=== PATIENT | female | born 1940 | race African-American/Black ===

== ENCOUNTER 2020-01-03 15:13 | Emergency (ER) | payer OTHER ==
[~2020-01-03] VITALS: Ht 165.1 cm; Wt 90.0 kg
[2020-01-03] MEDS: DILTIAZEM HCL 5MG/ML 5ML VIAL IV ONE ×2 (15:53→17:45)
[2020-01-03 16:13] LABS: BASOPHILS % 0.8 % (0.0-2.0); EOSINOPHILS % 0.9 % (0.0-5.0); HEMATOCRIT. 40.5 % (36.0-48.0); HEMOGLOBIN. 13.1 g/dL (12.0-16.0); LYMPHOCYTES % 13.2 % (20.0-50.0); MEAN CORPUSCULAR HEMOGLOBIN 27.8 pg (28.0-32.0); MEAN CORPUSCULAR VOLUME 86.3 fL (81.0-99.0); MEAN PLATELET VOLUME 8.4 fl (7.4-10.4); MONOCYTES % 7.6 % (2.0-8.0); NEUTROPHILS % 77.5 % (40.0-76.0); PLATELET 275 x1000/uL (130-400); RED BLOOD CELL COUNT 4.69 mill/uL (4.2-5.4); RED CELL DISTRIBUTION WIDTH 16.5 % (11.6-14.6)
[2020-01-03 16:20] LABS: CHLORIDE 110 mEq/L (98-107)
[2020-01-03 16:24] LABS: ETHANOL BLOOD < 10 mg/dL; INR 1.1; PROTHROMBIN TIME 11.1 sec (9.6-11.0)
[2020-01-03 16:27] LABS: LDL CHOLESTEROL 118 mg/dL (5-100)
[2020-01-03 16:28] LABS: CREATINE KINASE 326 IU/L (26-192)
[2020-01-03 16:36] LABS: CLARITY URINE CLOUDY (CLEAR); KETONES URINE 2+ (NEGATIVE); LEUKOCYTE ESTERASE URINE NEGATIVE (NEGATIVE); NITRITE URINE NEGATIVE (NEGATIVE); OCCULT BLOOD URINE 1+ (NEGATIVE); PROTEIN URINE 1+ (NEGATIVE); SPECIFIC GRAVITY URINE 1.029 (1.005-1.030)
[2020-01-03 16:37] LABS: COLOR URINE DARK YELLOW (YELLOW)
[2020-01-03 17:11] LABS: *AMPHETAMINES SCREEN URINE NEGATIVE (NEGATIVE); *BARBITURATES SCREEN URINE NEGATIVE (NEGATIVE); *BENZODIAZEPINES SCREEN URINE NEGATIVE (NEGATIVE); *COCAINE SCREEN URINE NEGATIVE (NEGATIVE); METHADONE URINE SCREEN NEGATIVE (NEGATIVE); OPIATES URINE SCREEN NEGATIVE (NEGATIVE)
[2020-01-03 17:12] LABS: CANNABINOID URINE SCREEN NEGATIVE (NEGATIVE); PHENCYCLIDINE URINE SCREEN NEGATIVE (NEGATIVE)
[2020-01-03] MEDS: POTASSIUM CHLORIDE 20MEQ TABLET SR PO ONE (17:45)
[2020-01-03 19:40] VITALS: BP 113/74
== END 2020-01-03 20:48 | disposition short-term general hospital (02) ==
LOC: ER 15:13 → CANBEDREQ 20:58
DX: I63.9 Cerebral infarction, unspecified (principal); G92 Toxic encephalopathy; I48.20 Chronic atrial fibrillation, unspecified; E87.8 Other disorders of electrolyte and fluid balance, not elsewhere classified
CPT/HCPCS: 36415; 70450; 71045; 80053; 80305; 80320; 81003; 82550; 83721; 83880; 84443; 84484; 85025; 85610; 93005; 96374; 96376; 99291; J3490; 99285; G0480